=== PATIENT | female | born 1970 | race Caucasian/White ===

== ENCOUNTER 2018-07-08 20:53 | Inpatient (IN) | payer OTHER ==
[2018-07-08] MEDS ORDERED: ONDANSETRON 4 MG INJ IV (21:30)
[2018-07-08] MEDS ORDERED: ALBUTEROL/IPRATROPIUM (NEB) 3 ML AMP HHN (21:30)
[2018-07-08] MEDS ORDERED: traZODone 100 MG TAB PO (21:30)
[2018-07-08] MEDS ORDERED: NACL 0.9% 3 ML SYG IV (21:30)
[2018-07-08] MEDS: KETOROLAC 30 MG INJ IV (21:35)
[2018-07-09] MEDS: KETOROLAC 30 MG INJ IV ×2 (02:45→08:51)
[2018-07-09 06:07] LABS: ADD MAN DIFF? NO; BASOPHILS % 0.1 % (0.0-2.0); HEMATOCRIT 41.4 % (37.0-47.0); HEMOGLOBIN 13.9 g/dl (12.0-16.0); LYMPHOCYTES # 0.7 10^3/ul (0.8-2.9); LYMPHOCYTES % 8.9 % (15.0-51.0); MEAN CORPUSCULAR HEMOGLOBIN 30.5 pg (29.0-33.0); MEAN CORPUSCULAR HGB CONC 33.6 g/dl (32.0-37.0); MEAN CORPUSCULAR VOLUME 90.8 fl (82.0-101.0); MEAN PLATELET VOLUME 9.2 fl (7.4-10.4); MONOCYTE # 0.1 10^3/ul (0.3-0.9); MONOCYTES % 1.4 % (0.0-11.0); NEUTROPHIL # 7.4 10^3/ul (1.6-7.5); NEUTROPHILS % 88.9 % (39.0-77.0); PLATELET COUNT 290 10^3/UL (140-415); RED BLOOD COUNT 4.56 10^6/ul (4.20-5.40); RED CELL DISTRIBUTION WIDTH 13.2 % (11.5-14.5)
[2018-07-09 06:07] LABS: WHITE BLOOD COUNT 8.3 10^3/ul (4.8-10.8)
[2018-07-09 06:37] LABS: ALANINE AMINOTRANSFERASE 60 IU/L (13-69); ALKALINE PHOSPHATASE 85 IU/L (42-121); ANION GAP 6 (5-13); ASPARTATE AMINO TRANSFERASE 56 IU/L (15-46); BILIRUBIN,INDIRECT 0.3 mg/dl (0-1.1); BILIRUBIN,TOTAL 0.3 mg/dl (0.2-1.3); BLOOD UREA NITROGEN 18 mg/dl (7-20); CALCIUM 9.3 mg/dl (8.4-10.2); CARBON DIOXIDE 25 mmol/L (21-31); CHLORIDE 108 mmol/L (97-110); CREATININE 0.65 mg/dl (0.44-1.00); Estimated GFR > 60 mL/min (>60); GLUCOSE 162 mg/dl (70-220); MAGNESIUM 2.1 mg/dl (1.7-2.5); PHOSPHORUS 2.1 mg/dl (2.5-4.9); POTASSIUM 4.2 mmol/L (3.5-5.1); SODIUM 139 mmol/L (135-144)
[2018-07-09 06:57] LABS: ALBUMIN/GLOBULIN RATIO 1.33
[2018-07-09] MEDS ORDERED: ABILIFY 30 MG (09:00)
[2018-07-09 13:54] LABS: PROTIME 12.3 Sec (11.9-14.9)
[2018-07-09 13:55] LABS: PARTIAL THROMBOPLASTIN TIME 28.7 Sec (23.0-35.0)
[2018-07-09 14:07] LABS: FREE T4 (FREE THYROXINE) 0.95 ng/dl (0.64-1.79)
[2018-07-09] MEDS: TERBINAFINE 250 MG TAB PO (14:16)
[2018-07-09 14:21] LABS: HEPATITIS B SURFACE ANTIGEN NEGATIVE (NEGATIVE)
[2018-07-09 14:21] LABS: THYROID STIMULATING HORMONE 0.501 MIU/L (0.465-4.680)
[2018-07-09 14:39] LABS: HEPATITIS C VIRAL ANTIBODY NEGATIVE (NEGATIVE)
[2018-07-09 14:40] LABS: HEPATITIS B SURFACE ANTIBODY NEGATIVE (NEGATIVE)
[2018-07-09] MEDS: morphine 2 MG INJ IV ×2 (16:21→21:57)
[2018-07-09] MEDS: HYDROCODONE/APAP (5/325) TAB PO (18:08)
[2018-07-09] MEDS ORDERED: RISPERIDONE 2 MG TAB PO (21:00)
[2018-07-09 22:09] LABS: RAPID PLASMA REAGIN NONREACTIVE (NR)
[2018-07-10] MEDS: morphine 2 MG INJ IV ×4 (07:40→21:54)
[2018-07-10] MEDS: TERBINAFINE 250 MG TAB PO (08:07)
[2018-07-10] MEDS: AMPICILLIN/SULB 3 GM/NS (PMX) 100 ML IVPB ×2 (12:42→20:35)
[2018-07-10] MEDS: HYDROCODONE/APAP (5/325) TAB PO ×2 (12:42→20:39)
[2018-07-10] MEDS: LIDOCAINE 1% (MPF) 5 ML VIAL (14:31)
[2018-07-10] MEDS: SOD CHLORIDE 0.9% 100 ML (16:38)
[2018-07-10] MEDS: IOHEXOL 300MG/ML 150 ML BTL (16:38)
[2018-07-11] MEDS: AMPICILLIN/SULB 3 GM/NS (PMX) 100 ML IVPB ×3 (01:05→12:16)
[2018-07-11] MEDS: morphine 2 MG INJ IV ×2 (08:29→12:23)
[2018-07-11] MEDS: TERBINAFINE 250 MG TAB PO (08:40)
== END 2018-07-11 14:05 | disposition home or self-care (01) | DRG 645 ==
LOC: PP2 07-09 08:50
PROVIDERS: Internal Medicine
PROC: 0H94XZX Drainage of Neck Skin, External Approach, Diagnostic (ICD-10-PCS; principal; 2018-07-10)
DX: Q89.2 Congenital malformations of other endocrine glands (principal); C73 Malignant neoplasm of thyroid gland; B36.0 Pityriasis versicolor; E66.9 Obesity, unspecified; Z68.36 Body mass index [BMI] 36.0-36.9, adult; F31.9 Bipolar disorder, unspecified; F20.9 Schizophrenia, unspecified; Z87.891 Personal history of nicotine dependence
CPT/HCPCS: 70491; 76536; 76942; 80053; 83735; 84100; 84439; 84443; 85025; 85610; 85730; 86592; 86706; 86803; 87340